=== PATIENT | female | born 1990 ===

== ENCOUNTER 2021-08-23 01:01 | Inpatient (IN) | payer BC ==
[2021-08-23] MEDS ORDERED: Ondansetron 4 MG/2 ML SDV IVPUSH PRN (01:37)
[2021-08-23] MEDS ORDERED: Terbutaline 1 MG/ML SDV SUBCUT PRN (01:37)
[2021-08-23] MEDS ORDERED: Sodium Chloride 0.9% 10 ML Syringe FLUSH PRN (01:37)
[2021-08-23] MEDS ORDERED: Water For Irrigation,Sterile 1,000 ML Container IRR PRN (01:37)
[2021-08-23] MEDS ORDERED: Carboprost Tromethamine 250 MCG/1 ML Amp IM PRN (01:37)
[2021-08-23] MEDS ORDERED: Butorphanol 1 MG/ML SDV IVPUSH PRN (01:37)
[2021-08-23] MEDS ORDERED: Sodium Chloride 0.9% 2.5 ML Syringe FLUSH PRN (01:37)
[2021-08-23] MEDS ORDERED: Tranexamic Acid 1,000 MG in Sodium Chloride 0.9% 100 ML IV PRN (01:37)
[2021-08-23] MEDS ORDERED: Methylergonovine 0.2 MG/1 ML Amp IM PRN (01:37)
[2021-08-23] MEDS ORDERED: Lidocaine 1% 50 ML MDV INJECT PRN (01:37)
[2021-08-23] MEDS ORDERED: Sodium Chloride 0.9% 20 ML SDV IV PRN (01:37)
[2021-08-23] MEDS ORDERED: Misoprostol 25 MCG (1/4 of 100 MCG) Tab VAG PRN ×2 (01:37)
[2021-08-23] MEDS ORDERED: Nalbuphine 10 MG/1 ML Vial IVPUSH PRN (01:37)
[2021-08-23] MEDS ORDERED: Misoprostol 200 MCG Tab PO PRN (01:37)
[2021-08-23] MEDS ORDERED: Oxytocin/0.9 % Sodium Chloride 30 UNIT/500 ML BAG IV SCH ×2 (01:45)
[2021-08-23] MEDS: Misoprostol 25 MCG (1/4 of 100 MCG) Tab PO SCH ×2 (02:29→20:21)
[2021-08-23] MEDS: Lactated Ringers 1,000 ML IV SCH ×2 (06:35→10:15)
[2021-08-23] MEDS ORDERED: Ropivacaine HCl/PF 200 ML ONE (10:08)
[2021-08-23] MEDS ORDERED: ePHEDrine 50 MG/ML SDV IVPUSH PRN (10:25)
[2021-08-23] MEDS ORDERED: Ropivacaine 0.2% 2MG/ML 200 ML Bag EPIDUR SCH (10:30)
[2021-08-23] MEDS ORDERED: oxyCODONE 5 MG Tab PO PRN (13:25)
[2021-08-23] MEDS ORDERED: Lanolin 100% Cream 7 GM Tube TOP PRN (13:25)
[2021-08-23] MEDS ORDERED: Acetaminophen 500 MG Tab PO PRN (13:25)
[2021-08-23] MEDS ORDERED: Benzocaine/Menthol 20%-0.5% Spray 78 GM Cannister TOP PRN (13:25)
[2021-08-23] MEDS ORDERED: Witch Hazel Medicated Pads 40/Jar TOP PRN (13:25)
[2021-08-23] MEDS ORDERED: Ibuprofen 400 MG Tab PO PRN (13:25)
[2021-08-23] MEDS ORDERED: Bisacodyl 10 MG Supp RECTAL PRN (13:25)
[2021-08-23] MEDS: Docusate Sodium 100 MG Cap PO PRN (19:45)
[2021-08-23] MEDS: Ibuprofen 800 MG Tab PO PRN (19:45)
[2021-08-23] MEDS: Acetaminophen 500 MG Tab PO PRN (22:32)
[2021-08-24 06:02] VITALS: PULSE 84
[2021-08-24] MEDS: Ibuprofen 800 MG Tab PO PRN ×2 (08:14→15:06)
[2021-08-24 08:31] VITALS: BP 123/82
[2021-08-24] MEDS: Acetaminophen 500 MG Tab PO PRN (15:06)
[2021-08-24] MEDS: Docusate Sodium 100 MG Cap PO PRN (15:07)
== END 2021-08-24 15:30 | disposition home or self-care (01) | DRG 560 ==
LOC: MW.OBCHECK 01:01 → MW.OB 01:02 → MW.OBCHECK 01:37 → MW.OB 01:37 → OBSVTOIN 13:25 → MW.OB 16:09
PROVIDERS: ADMIT Obstetrics & Gynecology Obstetrics; ATTEND Obstetrics & Gynecology
PROC: 3E0P7VZ Introduction of Hormone into Female Reproductive, Via Natural or Artificial Opening (ICD-10-PCS; principal; 2021-08-23)
PROC: 10907ZC Drainage of Amniotic Fluid, Therapeutic from Products of Conception, Via Natural or Artificial Opening (ICD-10-PCS; 2021-08-23)
PROC: 3E033VJ Introduction of Other Hormone into Peripheral Vein, Percutaneous Approach (ICD-10-PCS; 2021-08-23)
PROC: 10E0XZZ Delivery of Products of Conception, External Approach (ICD-10-PCS; 2021-08-23)
PROC: 3E0R3BZ Introduction of Anesthetic Agent into Spinal Canal, Percutaneous Approach (ICD-10-PCS; 2021-08-23)
PROC: 00HU33Z Insertion of Infusion Device into Spinal Canal, Percutaneous Approach (ICD-10-PCS; 2021-08-23)
DX: O48.0 Post-term pregnancy (principal); Z3A.41 41 weeks gestation of pregnancy; Z37.0 Single live birth; Z88.8 Allergy status to other drugs, medicaments and biological substances; Z20.822 Contact with and (suspected) exposure to COVID-19
CPT/HCPCS: 36415; 59025; 59409; 85014; 85018; 85027; 86592; 86850; 86900; 86901; A9270-GY; J2590; J2795; J7120; U0002